=== PATIENT | male | born 1960 | race African-American/Black ===

== ENCOUNTER 2022-06-09 16:04 | Emergency (ER) | payer OTHER ==
[2022-06-09 16:15] VITALS: BP 128/55; PULSE 78; RESP 19; TEMP 98.6
== END 2022-06-09 16:53 | disposition home or self-care (01) ==
LOC: JERFT 16:04 → JER 16:04 → JERFT 16:53
DX: Z20.6 Contact with and (suspected) exposure to human immunodeficiency virus [HIV] (principal)
CPT/HCPCS: 99282-25

== ENCOUNTER 2023-08-20 10:55 | Emergency (ER) | payer OTHER ==
[2023-08-20 11:09] VITALS: BP 126/63; PULSE 85; RESP 18; TEMP 99.5; BMI 27.6
[2023-08-20] MEDS ORDERED: ACETAMINOPHEN 500 MG TABLET (FP) ONE (12:37)
[2023-08-20] MEDS: ACETAMINOPHEN 500 MG TABLET (FP) PO ONE (13:04)
== END 2023-08-20 13:11 | disposition home or self-care (01) ==
LOC: JER 10:55
DX: M70.22 Olecranon bursitis, left elbow (principal); V03.10XA Pedestrian on foot injured in collision with car, pick-up truck or van in traffic accident, initial encounter; Y92.410 Unspecified street and highway as the place of occurrence of the external cause
CPT/HCPCS: 99283-25